=== PATIENT | male | born 1985 | race Caucasian/White ===

== ENCOUNTER 2018-07-18 23:08 | Emergency (ER) | END 2018-07-19 03:23 | disposition home or self-care (01) ==

== ENCOUNTER 2018-07-21 07:26 | Emergency (ER) | END 2018-07-21 08:20 | disposition home or self-care (01) ==

== ENCOUNTER 2018-07-28 11:39 | Emergency (ER) | END 2018-07-28 12:48 | disposition home or self-care (01) ==